=== PATIENT | male | born 1945 | race Caucasian/White ===

== ENCOUNTER 2020-10-27 17:06 | Inpatient (IN) | payer MEDICARE, OTHER ==
[~2020-10-27] VITALS: Ht 167.6 cm; Wt 53.0 kg
--- NOTE | 2020-10-27 17:23 | NUR ---
[facility] and compression fx, pt arrives in soft collar. Pt c/o bilat total hand numbness, weakness to legs and bilat numbness, denies any loss of bowel or bladder control. IV from [facility] 20GA patent.
[2020-10-27 18:13] LABS: INTERNATIONAL NORMALIZED RATIO 1.02 (0.93-1.1); PROTHROMBIN TIME 10.9 Seconds (9.6-11.5)
--- NOTE | 2020-10-27 18:35 | NUR ---
Pt remains in CT.
--- NOTE | 2020-10-27 18:45 | NUR ---
Report to DEB Hannah
--- NOTE | 2020-10-27 18:49 | NUR ---
Deb comer in [facility] - 10/27/20 at 1854 by INGRID RECEIVED REPORT FROM GRICELDA BOWLING TRANSFER OF CARE.
--- NOTE | 2020-10-27 18:59 | NUR ---
RECEIVED REPORT FROM GRICELDA BOYD. TRANSFER OF CARE.
[2020-10-27] MEDS ORDERED: GADOTERATE 5 MMOL/10ML SYR ONE (19:02)
--- NOTE | 2020-10-27 19:05 | NUR ---
pt off unit in imaging.
--- NOTE | 2020-10-27 20:01 | NUR ---
Patient is resting comfortably in bed. Bed in lowest, rails engaged, call light on lap. Vital Signs within normal limits. WCTM.
[2020-10-27] MEDS ORDERED: DEXAMETHASONE 4 MG/ML, 1ML IVPush ONE (20:30)
[2020-10-27] MEDS ORDERED: DEXAMETHASONE 4 MG/ML, 1ML ONE (20:38)
[2020-10-27] MEDS ORDERED: [UNRECOGNIZED DRUG - REMARK] (20:46)
[2020-10-27] MEDS ORDERED: [UNRECOGNIZED DRUG - REMARK] (20:46)
[2020-10-27] MEDS ORDERED: BLOOD PRESSURE MED (20:46)
[2020-10-27] MEDS ORDERED: PRED1TAB19 PO (20:46)
[2020-10-27] MEDS ORDERED: MELO7.5T31 PO (20:46)
[2020-10-27] MEDS ORDERED: TAMS-11 PO (20:46)
--- NOTE | 2020-10-27 20:46 | NUR ---
PT POOR HISTORIAN OF MED REC
--- NOTE | 2020-10-27 21:10 | NUR ---
spoke to pt brother and sister in law over phone pt given his phone to talk to brother and helped set it up.
--- NOTE | 2020-10-27 21:37 | NUR ---
REGISTRATION SPEAKING TO PT. SOFT COLLAR C-SPINE TAKEN OFF PT. HARD COLLAR C-SPINE PUT ONTO PT.
--- NOTE | 2020-10-27 22:05 | NUR ---
AWAITING REZA MCCANN FROM [facility].
--- NOTE | 2020-10-27 22:06 | NUR ---
[facility] AT BEDSIDE.
--- NOTE | 2020-10-27 22:21 | NUR ---
pt given sandwich, sunchips, and water.
--- NOTE | 2020-10-27 22:24 | NUR ---
aspen collar applied.
[2020-10-27] MEDS ORDERED: ONDANSETRON 2MG/ML, 2ML IVPush PRN ×2 (22:30)
[2020-10-27] MEDS ORDERED: KETOROLAC 30 MG/1 ML IM PRN (22:30)
[2020-10-27] MEDS ORDERED: LORazepam 1MG TABLET PO PRN (22:30)
[2020-10-27] MEDS ORDERED: LABETALOL 5MG/ML, 20ML IVPush PRN (22:30)
[2020-10-27] MEDS ORDERED: morphine SULFATE 10 MG/ML, 1ML IVPush PRN (22:30)
[2020-10-27] MEDS ORDERED: POLYETHYLENE GLYCOL 17 GM PACKET PO PRN (22:30)
[2020-10-27] MEDS ORDERED: PHARMACY MAY ADJ FOR RENAL FX MC PRN (22:30)
--- NOTE | 2020-10-27 22:42 | NUR ---
gave report to zaire avendaño.
[2020-10-27 23:45] VITALS: BP 111/70
[2020-10-28 00:30] VITALS: BP 116/70
[2020-10-28] MEDS: INSULIN LISPRO 100 UNITS/ML, PEN SQ-INSULIN SCH ×5 (00:42→20:18)
[2020-10-28] MEDS: DEXAMETHASONE 4 MG/ML, 1ML IVPush SCH ×4 (02:30→21:36)
[2020-10-28 06:07] LABS: MEAN CORPUSCULAR HEMOGLOBIN 30.6 pg (27.5-34.5); MEAN CORPUSCULAR HGB CONC 33.8 g/dL (33.2-36.2); MEAN PLATELET VOLUME 8.3 fL (7.4-10.4); PLATELET COUNT 305 x10^3/uL (130-400); RED BLOOD COUNT 4.94 x10^6/uL (4.38-5.82); RED CELL DISTRIBUTION WIDTH 14.6 % (9.4-14.8)
[2020-10-28 06:35] LABS: ALBUMIN 2.8 g/dL (3.4-5.0); ANION GAP 8 mmol/L (5-15); CALCIUM 9.1 mg/dL (8.5-10.1); CHLORIDE 99 mmol/L (98-107)
[2020-10-28 06:37] LABS: CREATININE 0.54 mg/dL (0.7-1.3)
[2020-10-28 06:44] LABS: BAND#(MANUAL) 0.06 x10^3/uL; BANDS%(MANUAL) 2 % (0-7); LYMPH#(MANUAL) 0.61 x10^3/uL (1-3.4); LYMPHS% (MANUAL) 21 % (22-44); MONOS#(MANUAL) 0.09 x10^3/uL (0.3-2.7); MONOS% (MANUAL) 3 % (2-9); SEG#(MANUAL) 2.15 x10^3/uL (1.8-6.8); SEGS% (MANUAL) 74 % (42-75)
[2020-10-28 06:45] LABS: <PLATELET ESTIMATE> ADEQUATE; <PLT MORPHOLOGY> NORMAL PLT MORPH; <RBC MORPHOLOGY> NORMAL
[2020-10-28 11:17] VITALS: BP 147/78
[2020-10-28 13:40] VITALS: BP 152/76
[2020-10-28] MEDS: METOPROLOL TARTRATE 25 MG TAB PO SCH (15:00)
[2020-10-28] MEDS: TAMSULOSIN 0.4 MG CAP.ER.24H PO SCH (18:08)
[2020-10-28 20:41] VITALS: BP 160/64
[2020-10-28] MEDS: FAMOTIDINE 20 MG TABLET PO SCH (21:36)
[2020-10-29 02:39] VITALS: BP 114/73
[2020-10-29] MEDS: DEXAMETHASONE 4 MG/ML, 1ML IVPush SCH ×4 (03:37→20:38)
[2020-10-29 06:11] LABS: BASOPHILS % (AUTO) 0 % (0-1); EOSINOPHILS % (AUTO) 0 % (1-7); LYMPHOCYTES % (AUTO) 9 % (22-44); MEAN CORPUSCULAR HGB CONC 34.3 g/dL (33.2-36.2); MEAN PLATELET VOLUME 8.5 fL (7.4-10.4); MONOCYTES % (AUTO) 3 % (2-9); NEUTROPHILS % (AUTO) 88 % (42-75); PLATELET COUNT 325 x10^3/uL (130-400); RED BLOOD COUNT 4.76 x10^6/uL (4.38-5.82); RED CELL DISTRIBUTION WIDTH 15.1 % (9.4-14.8)
[2020-10-29 06:13] LABS: ALBUMIN 2.5 g/dL (3.4-5.0); ANION GAP 5 mmol/L (5-15); CALCIUM 9.1 mg/dL (8.5-10.1); CHLORIDE 99 mmol/L (98-107)
[2020-10-29 06:16] LABS: ALANINE AMINOTRANSFERASE 25 U/L (12-78); ALKALINE PHOSPHATASE 73 U/L (45-117); BILIRUBIN,TOTAL 0.4 mg/dL (0.2-1.0); CREATININE 0.48 mg/dL (0.7-1.3); TOTAL PROTEIN 7.2 g/dL (6.4-8.2)
[2020-10-29] MEDS: INSULIN LISPRO 100 UNITS/ML, PEN SQ-INSULIN SCH ×4 (07:18→20:45)
[2020-10-29 07:57] VITALS: BP 151/84
[2020-10-29] MEDS: METOPROLOL TARTRATE 25 MG TAB PO SCH (08:40)
[2020-10-29] MEDS: FAMOTIDINE 20 MG TABLET PO SCH ×2 (08:40→20:37)
[2020-10-29] MEDS: TAMSULOSIN 0.4 MG CAP.ER.24H PO SCH (08:40)
[2020-10-29 13:40] VITALS: BP 123/70
[2020-10-29 19:56] VITALS: BP 128/82
[2020-10-29] MEDS: MELATONIN 5 MG TABLET PO PRN (23:12)
[2020-10-29] MEDS: ACETAMINOPHEN 325 MG TABLET PO PRN (23:12)
[2020-10-30 01:30] VITALS: BP 123/77
[2020-10-30] MEDS: ACETAMINOPHEN 325 MG TABLET PO PRN ×2 (03:34→20:48)
[2020-10-30] MEDS: DEXAMETHASONE 4 MG/ML, 1ML IVPush SCH ×4 (03:34→21:47)
[2020-10-30 05:53] LABS: BASOPHILS % (AUTO) 0 % (0-1); EOSINOPHILS % (AUTO) 0 % (1-7); LYMPHOCYTES % (AUTO) 10 % (22-44); MEAN CORPUSCULAR HEMOGLOBIN 30.9 pg (27.5-34.5); MEAN CORPUSCULAR HGB CONC 34.1 g/dL (33.2-36.2); MEAN PLATELET VOLUME 8.4 fL (7.4-10.4); MONOCYTES % (AUTO) 4 % (2-9); NEUTROPHILS % (AUTO) 86 % (42-75); PLATELET COUNT 327 x10^3/uL (130-400); RED CELL DISTRIBUTION WIDTH 14.7 % (9.4-14.8)
[2020-10-30 06:08] LABS: ANION GAP 8 mmol/L (5-15); CALCIUM 9.8 mg/dL (8.5-10.1); CHLORIDE 95 mmol/L (98-107); CREATININE 0.52 mg/dL (0.7-1.3)
[2020-10-30] MEDS: INSULIN LISPRO 100 UNITS/ML, PEN SQ-INSULIN SCH ×4 (07:00→20:48)
[2020-10-30 07:35] VITALS: BP 131/83
[2020-10-30] MEDS: TAMSULOSIN 0.4 MG CAP.ER.24H PO SCH (09:25)
[2020-10-30] MEDS: FAMOTIDINE 20 MG TABLET PO SCH ×2 (09:25→20:50)
[2020-10-30] MEDS: METOPROLOL TARTRATE 25 MG TAB PO SCH (09:25)
[2020-10-30] MEDS: NEOSPORIN OINT, 15GM TP SCH ×2 (11:20→20:48)
[2020-10-30 13:49] VITALS: BP 123/75
[2020-10-30 19:28] VITALS: BP 132/78
[2020-10-30] MEDS: MELATONIN 5 MG TABLET PO PRN (20:48)
[2020-10-31 01:08] VITALS: BP 150/77
[2020-10-31] MEDS: DEXAMETHASONE 4 MG/ML, 1ML IVPush SCH ×4 (03:39→22:43)
[2020-10-31] MEDS: INSULIN LISPRO 100 UNITS/ML, PEN SQ-INSULIN SCH ×4 (07:00→20:42)
[2020-10-31 07:02] VITALS: BP 151/78
[2020-10-31] MEDS: METOPROLOL TARTRATE 25 MG TAB PO SCH (08:12)
[2020-10-31] MEDS: TAMSULOSIN 0.4 MG CAP.ER.24H PO SCH (08:12)
[2020-10-31] MEDS: NEOSPORIN OINT, 15GM TP SCH ×2 (08:12→20:42)
[2020-10-31] MEDS: FAMOTIDINE 20 MG TABLET PO SCH ×2 (08:12→20:42)
[2020-10-31] MEDS ORDERED: CHLORHEXIDINE 15 ML UDC ONE (08:41)
[2020-10-31] MEDS ORDERED: CHLORHEXIDINE 15 ML UDC PO ONE (09:00)
[2020-10-31] MEDS ORDERED: REMIFENTANIL 2 MG ONE (09:53)
[2020-10-31] MEDS ORDERED: BUPIVACAINE/PF 0.5% ONE (09:54)
[2020-10-31] MEDS ORDERED: VANCOMYCIN 1,000 MG ONE (09:54)
[2020-10-31] MEDS ORDERED: EPINEPHRINE 1 MG/ML, 1ML ONE (09:54)
[2020-10-31] MEDS ORDERED: GENTAMICIN 80 MG/2 ML ONE (09:54)
[2020-10-31] MEDS ORDERED: PROPOFOL 10 MG/ML, 50ML ONE (10:20)
[2020-10-31] MEDS ORDERED: ROCURONIUM 10 MG/ML,10ML ONE (10:20)
[2020-10-31] MEDS ORDERED: PROPOFOL 10 MG/ML, 20ML ONE (10:20)
[2020-10-31] MEDS ORDERED: SUGAMMADEX 200 MG/2 ML IVPush ONE (10:20)
[2020-10-31] MEDS ORDERED: ONDANSETRON 2MG/ML, 2ML ONE (10:20)
[2020-10-31] MEDS ORDERED: VASOPRESSIN 20 UNIT/ML, 1ML ONE (10:20)
[2020-10-31] MEDS ORDERED: CEFAZOLIN 1,000 MG ONE (10:20)
[2020-10-31] MEDS ORDERED: PHENYLEPHRINE 10 MG/ML ONE (10:20)
[2020-10-31] MEDS ORDERED: ACETAMINOPHEN 650 MG/20.3 ML UDC ONE (13:28)
[2020-10-31] MEDS ORDERED: FENTANYL PF 100 MCG/2ML ONE ×2 (13:28→13:45)
[2020-10-31] MEDS ORDERED: OXYcodone 5 MG/5 ML ORAL.SOL UDC ONE ×2 (13:29→13:45)
[2020-10-31] MEDS ORDERED: LABETALOL 5MG/ML, 20ML IV PRN ×2 (13:30→16:00)
[2020-10-31] MEDS ORDERED: PROMETHAZINE 25 MG SUPP PR PRN (13:30)
[2020-10-31] MEDS ORDERED: hydrALAzine 20 MG/ML, 1ML IV PRN (13:30)
[2020-10-31] MEDS ORDERED: OXYcodone 5 MG/5 ML ORAL.SOL UDC PO PRN (13:30)
[2020-10-31] MEDS ORDERED: LORazepam 2 MG/ML, 1ML IVPush PRN (13:30)
[2020-10-31] MEDS ORDERED: ONDANSETRON 2MG/ML, 2ML IVPush PRN (13:30)
[2020-10-31] MEDS ORDERED: PROMETHAZINE 25 MG/ML, 1ML IVPush PRN (13:30)
[2020-10-31] MEDS ORDERED: METHOCARBAMOL 1,000 MG in DEXTROSE 5% 100 ML IV PRN (13:30)
[2020-10-31] MEDS ORDERED: HYDROmorphone 1 MG/ML, 1ML INJ IVPush PRN (13:30)
[2020-10-31] MEDS ORDERED: METOPROLOL 1 MG/ML, 5ML IV PRN (13:30)
[2020-10-31] MEDS ORDERED: ACETAMINOPHEN 325 MG TABLET PO PRN (13:30)
[2020-10-31] MEDS: FENTANYL PF 100 MCG/2ML IV PRN ×4 (13:34→14:10)
[2020-10-31 15:15] VITALS: BP 112/74
[2020-10-31] MEDS ORDERED: DIPHENHYDRAMINE 50 MG/ML, 1ML IM PRN (16:00)
[2020-10-31] MEDS ORDERED: PROMETHAZINE 25 MG/ML, 1ML IM PRN (16:00)
[2020-10-31] MEDS ORDERED: ONDANSETRON 2MG/ML, 2ML IV PRN (16:00)
[2020-10-31] MEDS ORDERED: DIPHENHYDRAMINE 50 MG/ML, 1ML IVPush PRN (16:00)
[2020-10-31] MEDS ORDERED: OXYcodone IR 5MG TABLET PO PRN (16:00)
[2020-10-31] MEDS ORDERED: BISACODYL 10 MG SUPP PR PRN (16:00)
[2020-10-31] MEDS ORDERED: DIAZEPAM 5 MG/ML, 2ML IV PRN (16:00)
[2020-10-31] MEDS ORDERED: HYDROmorphone 2 MG/ML, 1ML IM PRN (16:00)
[2020-10-31] MEDS ORDERED: MAGNESIUM HYDROXIDE 8%, 30ML UDC PO PRN (16:00)
[2020-10-31] MEDS ORDERED: METHOCARBAMOL 750 MG TABLET PO PRN (16:00)
[2020-10-31] MEDS ORDERED: DIPHENHYDRAMINE 25 MG CAPSULE PO PRN (16:00)
[2020-10-31] MEDS ORDERED: DIAZEPAM 5 MG TABLET PO PRN (18:00)
[2020-10-31] MEDS ORDERED: CYCLOBENZAPRINE 10 MG TABLET PO PRN (18:00)
[2020-10-31] MEDS: NS + 20MEQ KCL 1,000 ML IV SCH (18:05)
[2020-10-31] MEDS: CEFAZOLIN PMX 1GM/50ML 50 ML IVPB SCH (18:37)
[2020-10-31 18:49] VITALS: BP 105/68
[2020-10-31 23:36] VITALS: BP 124/70
[2020-11-01 02:47] VITALS: BP 135/79
[2020-11-01] MEDS: CEFAZOLIN PMX 1GM/50ML 50 ML IVPB SCH (02:51)
[2020-11-01] MEDS: DEXAMETHASONE 4 MG/ML, 1ML IVPush SCH (04:31)
[2020-11-01 05:37] LABS: BASOPHILS % (AUTO) 0 % (0-1); EOSINOPHILS % (AUTO) 0 % (1-7); LYMPHOCYTES % (AUTO) 4 % (22-44); MEAN CORPUSCULAR HEMOGLOBIN 30.4 pg (27.5-34.5); MEAN CORPUSCULAR HGB CONC 33.9 g/dL (33.2-36.2); MEAN PLATELET VOLUME 8.7 fL (7.4-10.4); MONOCYTES % (AUTO) 7 % (2-9); NEUTROPHILS % (AUTO) 89 % (42-75); PLATELET COUNT 296 x10^3/uL (130-400); RED BLOOD COUNT 4.36 x10^6/uL (4.38-5.82); RED CELL DISTRIBUTION WIDTH 14.6 % (9.4-14.8)
[2020-11-01 05:45] LABS: ALBUMIN 2.5 g/dL (3.4-5.0); ANION GAP 4 mmol/L (5-15); CALCIUM 8.6 mg/dL (8.5-10.1); CHLORIDE 98 mmol/L (98-107)
[2020-11-01 05:46] LABS: CREATININE 0.68 mg/dL (0.7-1.3)
[2020-11-01] MEDS: INSULIN LISPRO 100 UNITS/ML, PEN SQ-INSULIN SCH ×4 (07:00→20:40)
[2020-11-01] MEDS: NS + 20MEQ KCL 1,000 ML IV SCH ×2 (07:33→20:32)
[2020-11-01 07:35] VITALS: BP 146/84
[2020-11-01] MEDS: TAMSULOSIN 0.4 MG CAP.ER.24H PO SCH (10:05)
[2020-11-01] MEDS: HYDROcodone/APAP 5/325 TABLET PO PRN ×3 (10:05→21:56)
[2020-11-01] MEDS: SENNA/DOCUSATE TABLET PO SCH (10:06)
[2020-11-01] MEDS: FAMOTIDINE 20 MG TABLET PO SCH ×2 (10:06→20:32)
[2020-11-01] MEDS: METOPROLOL TARTRATE 25 MG TAB PO SCH (10:06)
[2020-11-01] MEDS: NEOSPORIN OINT, 15GM TP SCH ×2 (10:06→20:42)
[2020-11-01 15:24] VITALS: BP 133/71
[2020-11-01 19:45] VITALS: BP 133/71
[2020-11-02 02:19] VITALS: BP 153/97
[2020-11-02] MEDS: INSULIN LISPRO 100 UNITS/ML, PEN SQ-INSULIN SCH ×3 (06:38→16:00)
[2020-11-02 08:01] VITALS: BP 145/87
[2020-11-02] MEDS: SENNA/DOCUSATE TABLET PO SCH (08:50)
[2020-11-02] MEDS: METOPROLOL TARTRATE 25 MG TAB PO SCH (08:51)
[2020-11-02] MEDS: HYDROcodone/APAP 5/325 TABLET PO PRN (08:52)
[2020-11-02] MEDS: TAMSULOSIN 0.4 MG CAP.ER.24H PO SCH (08:52)
[2020-11-02] MEDS: FAMOTIDINE 20 MG TABLET PO SCH (08:53)
[2020-11-02] MEDS: NEOSPORIN OINT, 15GM TP SCH (09:01)
[2020-11-02] MEDS: NS + 20MEQ KCL 1,000 ML IV SCH (10:58)
[2020-11-02 13:53] VITALS: BP 139/75
[2020-11-02] MEDS ORDERED: METO25TA35 PO (15:58)
[2020-11-02] MEDS ORDERED: HYDR-2214 PO (15:58)
[2020-11-02] MEDS ORDERED: POLY17PO5 PO (15:58)
== END 2020-11-02 18:30 | DRG 471 ==
LOC: ED 21:41 → EDBD 21:51 → EDIP 21:51 → 4NE 23:33
PROVIDERS: ADMIT Internal Medicine; ATTEND Hospitalist
PROC: 0RG2071 Fusion of 2 or more Cervical Vertebral Joints with Autologous Tissue Substitute, Posterior Approach, Posterior Column, Open Approach (ICD-10-PCS; 2020-10-31)
PROC: 4A11X4G Monitoring of Peripheral Nervous Electrical Activity, Intraoperative, External Approach (ICD-10-PCS; 2020-10-31)
PROC: 00NW0ZZ Release Cervical Spinal Cord, Open Approach (ICD-10-PCS; principal; 2020-10-31 16:00)
DX: M48.02 Spinal stenosis, cervical region (principal); R53.2 Functional quadriplegia; G95.19 Other vascular myelopathies; M84.48XA Pathological fracture, other site, initial encounter for fracture; E44.0 Moderate protein-calorie malnutrition; G95.29 Other cord compression; C61 Malignant neoplasm of prostate; F17.200 Nicotine dependence, unspecified, uncomplicated; M47.9 Spondylosis, unspecified; M12.80 Other specific arthropathies, not elsewhere classified, unspecified site; H40.9 Unspecified glaucoma; I48.91 Unspecified atrial fibrillation; M06.4 Inflammatory polyarthropathy; F19.10 Other psychoactive substance abuse, uncomplicated; M81.0 Age-related osteoporosis without current pathological fracture; Z85.46 Personal history of malignant neoplasm of prostate; Z79.899 Other long term (current) drug therapy
CPT/HCPCS: 36415; 70553; 71045; 72040; 72156; 80048; 80053; 82040; 82962; 83735; 85025; 85347; 85384; 85576; 85610; 85730; 93005; 95938; 95941; 96374; 99285; C1713; G0378; J0171; J0690; J1100; J2270; J2405; J2704; J3010; J3370; J3480; U0005; A9575; C1762; C1781; J1580; J1815; J2370; J2800; U0003